=== PATIENT | male | born 1980 | race Caucasian/White ===

== ENCOUNTER 2019-12-12 09:22 | Emergency (ER) | payer OTHER, SELFPAY ==
[2019-12-12 09:43] VITALS: BP 146/68; PULSE 92; RESP 19; TEMP 36.8; O2SAT 98; BMI 28.8
--- NOTE | 2019-12-12 09:58 | HMH.EDUTC ---
[facility] [place] Clinical Impression: Exposure to COVID-19 virus Disposition: Home, Self-Care Condition on Discharge: Good Instructions: Preventing the Spread of Coronavirus Discharge Instructions Additional Instructions: Drink plenty of fluids. Take tylenol for pain or fever. Follow up with your regular doctor. GO TO THE ER FOR ANY WORSENING SYMPTOMS .FOLLOW THE DIRECTIONS ON THE COVID-19 HAND OUT THAT WE GAVE YOU REGARDING SELF-ISOLATION UNTIL YOU KNOW YOUR COVID-19 RESULTS Referrals: Noe Velarde MD [Primary Care Provider] - Time of Disposition: 10:04 Medical Decision Making - Medical Records Medical records reviewed: No: I reviewed the patient's medical records. - Lencho Inquiry Pt receiving controlled substance: No Vital Signs: 12/12/19 09:43 12/12/19 10:11 Temperature 98.2 F 98.2 F Temperature Source Oral Pulse Rate 92 H Pulse Rate [Left Brachial] 92 H Respiratory Rate 19 19 Blood Pressure 146/68 H Blood Pressure [Left Arm] 146/68 H Blood Pressure Mean [Left Arm] 94 Blood Pressure Source [Left Arm] Automatic Cuff Blood Pressure Position [Left Arm] Sitting 02 Sat by Pulse Oximetry 98 Oxygen Delivery Method Room Air [facility] [place] HPI - General Stated complaint: covid test Time Seen by Provider: 12/12/19 09:58 Mode of Arrival: Ambulatory Source of Information: Patient Limitations: No Limitations Description of Symptoms (Recalled from Triage Doc. by RN): PATIENT REQUESTING COVID TEST; STATES HE WAS EXPOSED TO SOMEONE AT WORK. DENIES SYMPTOMS HEENT Symptoms (Recalled from RN notes): No Resp Symptoms (Recalled from RN notes): No Skin Symptoms (Recalled from RN notes): No MS Symptoms (Recalled from RN notes): No Functional Status (Recalled from RN notes): WNL - History of Present Illness Provider Complaint: He denies any symptoms. He was exposed to COVID-19 thru his work last week. - Related Data Home Medications Medication Instructions Recorded Confirmed Buspirone HCl [Buspar 10mg 15 mg PO TID 12/12/19 12/12/19 tablet] Venlafaxine HCl 150 mg PO DAILY 12/12/19 12/12/19 Allergies Allergy/AdvReac Type Severity Reaction Status Date / Time No Known Allergies Allergy Verified 12/15/17 14:51 - Worker's Comp Is this a Worker's Comp case?: No [facility] History - Hepatitis A Screen Drug use history?: No High risk sexual behaviors?: No History of sexually transmitted infection?: No Currently employed?: No Childcare worker?: No Do you have indoor plumbing?: Yes Do you have electricity?: Yes Attestation statement:: This patient has been screened for Hepatitis A risk factors. I have reviewed the patient's past medical history: Yes - Social History Smoking Status: Current every day smoker Tobacco Type: cigarettes # Packs/Day (cigarettes): 1 Alcohol Intake: never Occupational Status: other ROS Obtained: Yes All systems reviewed & no additional complaints - Constitutional Constitutional: Denies chills, Denies fever(s) - Eyes Eyes: Denies eye discharge - ENT Ears, Nose, Mouth, and Throat: Denies dizziness, Denies otalgia, Denies sore throat Physical Exam - General General appearance: alert, in no apparent distress - Head Head exam: atraumatic, normocephalic, normal inspection - Eye Eye exam: Present: normal appearance, PERRL, EOMI - ENT ENT exam: Present: normal exam, normal oropharynx, mucous membranes moist, TM's normal bilaterally, normal external ear exam - Neck Neck exam: Present: normal inspection, full ROM, trachea midline. Absent: meningismus, lymphadenopathy - Chest Chest inspection: Present: normal inspection, symmetric chest wall rise. Absent: tenderness - Respiratory Respiratory exam: Present: normal lung sounds bilaterally. Absent: respiratory distress - Cardiovascular Cardiovascular exam: Present: regular rate, normal rhythm. Absent: JVD - Abdominal Exam Abdominal exam: Present: soft, normal bowel sounds.
[2019-12-12 10:11] VITALS: BP 146/68; PULSE 92; RESP 19; TEMP 36.8; O2SAT 98
== END 2019-12-12 10:13 | disposition home or self-care (01) ==
PROVIDERS: Emergency Provider Nurse Practitioner Family; PCP Family Medicine
DX: Z20.828 Contact with and (suspected) exposure to other viral communicable diseases (principal); F17.210 Nicotine dependence, cigarettes, uncomplicated
CPT/HCPCS: 99201; U0003